=== PATIENT | male | born 2000 | race Caucasian/White ===

== ENCOUNTER 2020-08-06 16:22 | Emergency (ER) | payer SELFPAY ==
[2020-08-06 17:23] LABS: HEMOGLOBIN 14.2 gm/dl (14.0-17.5); RED BLOOD COUNT 4.84 M/UL (4.20-5.50)
[2020-08-06 17:34] LABS: BUN/CREATININE RATIO 14 (0-10)
== END 2020-08-06 19:40 | disposition short-term general hospital (02) ==
LOC: ER1 16:22
PROVIDERS: Preventive Medicine Occupational Medicine
DX: S62.325B Displaced fracture of shaft of fourth metacarpal bone, left hand, initial encounter for open fracture (principal); F17.200 Nicotine dependence, unspecified, uncomplicated; W34.00XA Accidental discharge from unspecified firearms or gun, initial encounter; Y92.009 Unspecified place in unspecified non-institutional (private) residence as the place of occurrence of the external cause
CPT/HCPCS: 73130; 80048; 85025; 90471; 90714; 96365; 96375; 96376; 99284; J0690; J1170; J1885; J2405